=== PATIENT | female | born 1975 | race Caucasian/White ===

== ENCOUNTER 2020-01-11 15:20 | Outpatient (CLI) | payer OTHER, BC, SELFPAY ==
--- NOTE | ~2020-01-11 | MM_ITS ---
EXAMINATION: MM screening [facility] w ellis HISTORY: Screening mammogram TECHNIQUE: Craniocaudal and mediolateral oblique 3-D tomosynthesis images were obtained and synthetic 2-D images were generated. CAD analysis was submitted and interpreted. COMPARISON: 12/04/2018, 11/11/2017, 11/08/2016 bilateral digital screening mammogram examinations BREAST PARENCHYMAL COMPOSITION: There are scattered areas of fibroglandular density. FINDINGS: There is no evidence of suspicious mass, calcification, or architectural distortion to sugg est malignancy in either breast. There has been no suspicious interval change. IMPRESSION: 1. No mammographic evidence of malignancy. 2. Recommend routine screening mammography in one year. BI-RADS Category 1: Negative Reviewed, dictated and finalized at location A.
== END 2020-01-11 15:21 | disposition home or self-care (01) ==
LOC: ANHIMG 15:24
PROVIDERS: PCP Family Medicine Sports Medicine; Visit Provider Obstetrics & Gynecology
DX: Z12.31 Encounter for screening mammogram for malignant neoplasm of breast (principal)
CPT/HCPCS: 77063; 77067

== ENCOUNTER 2020-12-02 07:11 | Outpatient (CLI) | payer OTHER, BC, SELFPAY ==
--- NOTE | ~2020-12-02 | MM_ITS ---
EXAMINATION: MM screening [facility] BI w ellis HISTORY: Screening mammogram TECHNIQUE: Craniocaudal and mediolateral oblique 3-D tomosynthesis images were obtained and synthetic 2-D images were generated. CAD analysis was submitted and interpreted. COMPARISON: 01/11/2020, 12/04/2018, 11/11/2018 BREAST PARENCHYMAL COMPOSITION: There are scattered areas of fibroglandular density. FINDINGS: There is no evidence of suspicious mass, calcification, or architectural distortion to sugg est malignancy in either breast. There has been no suspicious interval change. IMPRESSION: 1. No mammographic evidence of malignancy. 2. Recommend routine screening mammography in one year. BI-RADS Category 1: Negative Reviewed, dictated and finalized at location A.
== END 2020-12-02 07:12 | disposition home or self-care (01) ==
LOC: ANHIMG 07:13
PROVIDERS: PCP Family Medicine Sports Medicine; Visit Provider Obstetrics & Gynecology
DX: Z12.31 Encounter for screening mammogram for malignant neoplasm of breast (principal)
CPT/HCPCS: 77063; 77067

== ENCOUNTER 2022-01-23 16:06 | Outpatient (CLI) | payer OTHER, BC, SELFPAY ==
--- NOTE | ~2022-01-23 | MM_ITS ---
EXAMINATION: MM screening [facility] BI w ellsi HISTORY: Screening mammogram TECHNIQUE: Craniocaudal and mediolateral oblique 3-D tomosynthesis images were obtained and synthetic 2-D images were generated. CAD analysis was submitted and interpreted. COMPARISON: 12/02/2020, 01/11/2020 BREAST PARENCHYMAL COMPOSITION: There are scattered areas of fibroglandular density. FINDINGS: RIGHT BREAST: There is no suspicious mass, calcification, or architectural distortion to suggest mann gnancy. There has been no significant interval change. LEFT BREAST: There is a possible mass in the middle/posterior third of the slightly inner breast appr oximately 9 cm from the nipple. IMPRESSION: 1. Possible left breast mass. 2. Additional mammographic views and possible breast ultrasound are recommended. BI-RADS Category 0: Incomplete: Needs additional imaging evaluation. Reviewed, dictated and finalized at location A. IMPRESSION: 1. Possible left breast mass. 2. Additional mammographic views and possible breast ultrasound are recommended . BI-RADS Category 0: Incomplete: Needs additional imaging evaluation.
== END 2022-01-23 16:07 | disposition home or self-care (01) ==
PROVIDERS: PCP Family Medicine Sports Medicine; Visit Provider Obstetrics & Gynecology
DX: Z12.31 Encounter for screening mammogram for malignant neoplasm of breast (principal); R92.8 Other abnormal and inconclusive findings on diagnostic imaging of breast
CPT/HCPCS: 77063; 77067

== ENCOUNTER 2022-02-12 12:27 | Outpatient (CLI) | payer OTHER, BC, SELFPAY ==
--- NOTE | ~2022-02-12 | MMUS_ITS ---
EXAMINATION: MM diagnostic [facility] LT w ellis, US breast LT limited HISTORY: Possible left breast mass on screening mammogram TECHNIQUE: Additional 3-D tomosynthesis images of the left breast were performed and synthetic 2-D im ages were generated. CAD analysis was submitted and interpreted. High resolution limited left breast ultrasound was performed. COMPARISON: 01/23/2022, 12/02/2020, 01/11/2020 FINDINGS: MAMMOGRAPHIC FINDINGS: An asymmetry persists in the posterior third of the slightly inner breast 10 cm from nipple at the 8: 00 location on the craniocaudal view. No definite correlate is identified on the additional views obt ained. ULTRASOUND: There is no evidence of focal abnormal solid or cystic mass in the vicinity of the mammographic findi ng in question. IMPRESSION: 1. Probably benign left breast asymmetry. 2. Recommend 6 month follow-up left diagnostic mammogram and possible ultrasound. BI-RADS category 3, probably benign findings. Reviewed, dictated and finalized at location A. IMPRESSION: 1. Probably benign left breast asymmetry. 2. Recommend 6 month follow-up left diagnostic mammogram and possible ultrasoun d. BI-RADS category 3, probably benign findings.
== END 2022-02-12 12:28 | disposition home or self-care (01) ==
PROVIDERS: PCP Family Medicine Sports Medicine; Visit Provider Obstetrics & Gynecology
DX: R92.8 Other abnormal and inconclusive findings on diagnostic imaging of breast (principal)
CPT/HCPCS: 76642; 77061; 77065; G0279

== ENCOUNTER 2022-08-27 11:36 | Outpatient (CLI) | payer OTHER, BC, SELFPAY ==
--- NOTE | ~2022-08-27 | MM_ITS ---
EXAMINATION: MM diagnostic [facility] LT w ellis HISTORY: Six-month follow-up of probable benign mammographic fibroglandular asymmetry TECHNIQUE: ML, MLO and CC 3-D tomosynthesis images of the left breast were performed and synthetic 2- D images were generated. CAD analysis was submitted and interpreted. COMPARISON: 02/12/2022iagnostic left mammogram and limited left breast ultrasound 08/23/2021 bilateral screening mammogram BREAST PARENCHYMAL COMPOSITION: There are scattered areas of fibroglandular density. FINDINGS: No suspicious mass or architectural distortion, malignant calcification, skin thickening or retraction or significant new or developing density is detected. IMPRESSION: 1. No mammographic evidence of malignancy 2. Routine annual mammographic screening is recommended BI-RADS Category 1: Negative Reviewed, dictated and finalized at location A.
== END 2022-08-27 11:37 | disposition home or self-care (01) ==
LOC: ANHIMG 11:38
PROVIDERS: PCP Family Medicine Sports Medicine; Visit Provider Obstetrics & Gynecology
DX: R92.8 Other abnormal and inconclusive findings on diagnostic imaging of breast (principal)
CPT/HCPCS: 77061; 77065; G0279

== ENCOUNTER 2023-08-06 15:42 | Outpatient (CLI) | payer OTHER, BC, SELFPAY ==
--- NOTE | ~2023-08-06 | MM_ITS ---
EXAMINATION: MM screening [facility] BI w ellis HISTORY: Screening mammogram TECHNIQUE: Craniocaudal and mediolateral oblique 3-D tomosynthesis images were obtained and synthetic 2-D images were generated. CAD analysis was submitted and interpreted. COMPARISON: August 27, 2022 diagnostic left mammogram February 12, 2022 diagnostic left mammogram and limited left breast ultrasound January 23, 2022, December 02, 2020 bilateral screening mammogram examinations BREAST PARENCHYMAL COMPOSITION: There are scattered areas of fibroglandular density. FINDINGS: There is no evidence of suspicious mass, calcification, or architectural distortion to sugg est malignancy in either breast. There has been no suspicious interval change. IMPRESSION: 1. No mammographic evidence of malignancy. 2. Recommend routine screening mammography in one year. BI-RADS Category 1: Negative Reviewed, dictated and finalized at location A.
== END 2023-08-06 15:43 | disposition home or self-care (01) ==
PROVIDERS: PCP Family Medicine Sports Medicine; Visit Provider Obstetrics & Gynecology
DX: Z12.31 Encounter for screening mammogram for malignant neoplasm of breast (principal)
CPT/HCPCS: 77063; 77067

== ENCOUNTER 2024-10-27 09:14 | Outpatient (CLI) | payer OTHER, BC, SELFPAY ==
--- OUTSIDE RECORDS SUMMARY | 2024-10-27 09:34 | XMS_ITS | Clinical Summary ---
Author Organization [facility] Address [address] [place] [address] Phone Care Team Providers Care Rubber Mill Tender Name Role Phone Oscar Parkinson MD Primary Care Provider [phone] Allergies Active Allergy Reactions Criticality Noted Date Comments Erythromycin Hives High 04/02/2022 Medications buPROPion HCL XL 150 mg 24 hr tablet, extended release Take 150 mg by mouth daily in the morning. Active HYDROcodone-winnie taminophen (HYCET) 7.5-325 mg/15 mL SolutionIndicat ions:Obesity (BMI 30.0-34.9) Take 15 mL by mouth every 6 hours as needed for Pain. Max Daily Amount: 60 mL 280 mL 05/04/2022 Active zolpidem (AMBIEN) 10 mg tablet Take 10 mg by mouth nightly as needed for Insomnia. Active estradioL (ESTRACE) 1 mg tablet Take 1 mg by mouth daily. Active pantoprazole (PROTONIX) 40 mg Tablet, Delayed Release (E.C.) Take 40 mg by mouth daily. 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 Gender Identity Not on file Sexual Orientation Not on file Last Filed Vital Signs Vital Sign Reading Time Taken Comments Blood Pressure 122/72 07/27/2022 9:10 AM ADVERTISING PHOTOGRAPHER Pulse 60 07/27/2022 9:10 AM ADVERTISING PHOTOGRAPHER Temperature 37 C (98.6 F) 07/27/2022 8:49 AM ADVERTISING PHOTOGRAPHER Respiratory Rate 19 07/27/2022 9:10 AM ADVERTISING PHOTOGRAPHER Oxygen Saturation 99% 07/27/2022 9:10 AM ADVERTISING PHOTOGRAPHER Inhaled Oxygen Concentration - - Weight 83.7 kg (184 lb 9.6 oz) 07/27/2022 7:43 A M ADVERTISING PHOTOGRAPHER Height 175.3 cm (5' 9) 07/27/2022 7:43 AM ADVERTISING PHOTOGRAPHER Body Mass Index 27.26 07/27/2022 7:43 AM ADVERTISING PHOTOGRAPHER Plan of Treatment Health Maintenance Due Date Last Done Comments DTAP/TDAP/TD VACCINES (1 - Tdap) 1993 HEPATITIS B VACCINES (1 of 3 - 19+ 3-dose series) 02/24 HPV/Cotest (21-29) 1995 CERVICAL CANCER SCREENING 2004 HPV/Cotest (30-65) 2004 PAP SMEAR 2004 BREAST CANCER SCREENING 2014 COLORECTAL SCREENING 2019 Colorectal Cancer Screening 2019 FIT-DNA Q 3 years 2019 FIT/FOBT Q 1 year 2019 Flex Sig/CT Colonography Q 5 years 2019 INFLUENZA VACCINE (#1) 2023 ZOSTER VACCINE (1 of 2) 2024 Medical Devices Implanted Type Area Applications Development Analyst Device Identifier Shelf Expiration Date Model / Serial / Lot Intragastric Balln Orber[employer] Sys B-4800 - [id number] Implanted:Qty: 1 on 05/04/2022 by Nate Ramírez MD at [facility] Other N/A: Esophagus [employer] B-4800 / / [place] [address] [place] [address] BLUE ACCESS CHOICE Care Teams Rubber Mill Tender Relationship Specialty Start Date End Date Oscar Parkinson MD [address] [place] [address] PCP - General Family Practice 07/27/22
[2024-10-27 09:56] LABS: Basophils Absolute Auto 0.1 K/mm3 (0.0-0.1); Basophils Percent Auto 1.3 % (0.2-1.2); Eosinophils Absolute Auto 0.4 K/mm3 (0-0.3); Eosinophils Percent Auto 8.1 % (0-4.4); Hematocrit 44.3 % (37.0-47.0); Hemoglobin 14.5 g/dL (12.0-15.0); Immature Granulocyte Absolute 0.01 K/mm3 (0.00-0.031); Immature Granulocyte Percent A 0.2 % (0-0.5); Lymphocytes Percent Auto 34.9 % (18.3-44.2); Mean Corpuscular HGB Conc 32.7 g/dl (32-36); Mean Corpuscular Hemoglobin 30.7 pg (26-34); Mean Corpuscular Volume 93.7 fl (80-100); Monocytes Absolute Auto 0.2 K/mm3 (0.1-0.6); Monocytes Percent Auto 5.2 % (2.6-8.5); Neutrophils Absolute Auto 2.3 K/mm3 (1.3-6.7); Neutrophils Percent Auto 50.3 % (45.5-73.1); Platelet Count Result 219 k/mm3 (150-375); Red Blood Count 4.73 M/mm3 (4.2-5.4); Red Cell Distribution Width 12.6 % (11.5-14.5); White Blood Count 4.6 K/mm3 (4.5-10.0)
[2024-10-27 10:04] LABS: Add Urine Microscopic? YES; Appearance Urine Clear (Clear); Bacteria Urine None Seen /hpf; Bilirubin Urine Negative (Negative); Blood Urine Negative (Negative); Color Urine Yellow (Yellow); Glucose Urine UA Negative (Negative); Ketones Urine Negative (Negative); Leukocyte Esterase Ur Trace LEU/UL (Negative); Nitrate Urine Negative (Negative); Non Pathogenic Casts 0-2; Protein Urine Negative (Negative); RBC Urine 0-2 /hpf (0-2); Specific Grav Ur 1.014 (1.001-1.035); Squamous Epithelial Cell Urine None Seen /hpf (Few); WBC Urine 0-5 /hpf (0-3)
[2024-10-27 10:36] LABS: Vitamin D 25 Hydroxy 25.3 ng/mL
[2024-10-27 14:09] LABS: Alanine Aminotransferase 15 U/L (6-35); Albumin Level 4.4 g/dL (3.5-5.1); Alkaline Phosphatase 61 U/L (38-126); Anion Gap 4 mmol/L (4-12); Aspartate Amino Transferase 24 U/L (14-36); Bilirubin,Total 0.6 mg/dL (0.2-1.3); Blood Urea Nitrogen 14 mg/dL (7-17); Calcium 9.5 mg/dL (8.4-10.2); Carbon Dioxide 32 mmol/L (22-30); Chloride 103 mmol/L (98-107); Cholesterol 218 mg/dL (0-200); Estimated Glomerular Filt Rate > 60; Glucose 89 mg/dL (65-110); HDL Direct 88 mg/dL; Potassium 4.2 mmol/L (3.4-5.0); Sodium 139 mmol/L (137-145); Total Protein 7.5 g/dL (6.3-8.2); Triglycerides 129 mg/dL (<150)
[2024-10-27 14:22] LABS: LDL Cholesterol Direct 89 mg/dL
== END 2024-10-27 09:15 | disposition home or self-care (01) ==
LOC: ANHLAB 09:19
PROVIDERS: PCP Family Medicine Sports Medicine; Visit Provider Nurse Practitioner
DX: Z00.00 Encounter for general adult medical examination without abnormal findings (principal); Z12.31 Encounter for screening mammogram for malignant neoplasm of breast
CPT/HCPCS: 36415; 80053; 80061; 81001; 82306; 82607; 84443; 85025

== ENCOUNTER 2024-12-11 09:27 | Outpatient (CLI) | payer OTHER, BC, SELFPAY ==
--- OUTSIDE RECORDS SUMMARY | 2024-12-11 09:31 | XMS_ITS | Clinical Summary ---
Author Organization [facility] Address [address] [place] [address] Phone Care Team Providers Care Fire Chief Deputy Name Role Phone Oscar Parkinson MD Primary Care Provider [phone] Allergies Active Allergy Reactions Criticality Noted Date [...] on file Legal Sex Female 9:31 AM ASSAULT AMPHIBIOUS VEHICLE CREWMAN Gender Identity Not on file Sexual Orientation Not on file Last Filed Vital Signs Vital Sign Reading Time Taken Comments Blood Pressure 122/72 07/27/2022 9:10 AM ASSAULT AMPHIBIOUS VEHICLE CREWMAN Pulse 60 07/27/2022 9:10 AM ASSAULT AMPHIBIOUS VEHICLE CREWMAN Temperature 37 C (98.6 F) 07/27/2022 8:49 AM ASSAULT AMPHIBIOUS VEHICLE CREWMAN Respiratory Rate 19 07/27/2022 9:10 AM ASSAULT AMPHIBIOUS VEHICLE CREWMAN Oxygen Saturation 99% 07/27/2022 9:10 AM ASSAULT AMPHIBIOUS VEHICLE CREWMAN Inhaled Oxygen Concentration - - Weight 83.7 kg (184 lb 9.6 oz) 07/27/2022 7:43 A M ASSAULT AMPHIBIOUS VEHICLE CREWMAN Height 175.3 cm (5' 9) 07/27/2022 7:43 AM ASSAULT AMPHIBIOUS VEHICLE CREWMAN Body Mass Index 27.26 07/27/2022 7:43 AM ASSAULT AMPHIBIOUS VEHICLE CREWMAN Plan of Treatment Health Maintenance Due Date [...] Flex Sig/CT Colonography Q 5 years 2019 ZOSTER VACCINE (1 of 2) 2024 INFLUENZA VACCINE (#1) 2024 Medical Devices Implanted Type Area Paperboard Box Maker Device Identifier Shelf Expiration Date Model / Serial / Lot Intragastric Balln [employer]ber[employer] Sys B-4800 - [id number] Implanted:Qty: 1 on 05/04/2022 by Nate Ramírez MD at [facility] Other N/A: Esophagus [employer] B-4800 / / [place] [address] [place] [address] BLUE ACCESS CHOICE Care Teams Fire Chief Deputy Relationship Specialty Start Date End Date Oscar Parkinson MD [address] [place] [address] PCP - General Family Practice 07/27/22
[2024-12-15 14:08] LABS: Free Testosterone (Direct) 0.4 pg/mL (0.0-4.2)
[2024-12-15 20:07] LABS: Estrogens, Total 831 pg/mL (.)
== END 2024-12-11 09:28 | disposition home or self-care (01) ==
PROVIDERS: PCP Family Medicine Sports Medicine; Visit Provider Nurse Practitioner
DX: E79.89 Other specified disorders of purine and pyrimidine metabolism (principal); Z00.00 Encounter for general adult medical examination without abnormal findings; Z12.11 Encounter for screening for malignant neoplasm of colon; R41.89 Other symptoms and signs involving cognitive functions and awareness; R68.82 Decreased libido
CPT/HCPCS: 82672; 84144; 84402

== ENCOUNTER 2024-12-14 13:48 | Outpatient (CLI) | payer OTHER, BC, SELFPAY ==
--- NOTE | ~2024-12-14 | MM_ITS ---
EXAMINATION: MM screening [facility] BI w ellis HISTORY: Screening TECHNIQUE: Craniocaudal and mediolateral oblique 3-D tomosynthesis images were obtained and synthetic 2-D images were generated. CAD analysis was submitted and interpreted. COMPARISON: Comparison to multiple prior studies sequentially, with oldest reviewed study dated 12/04. BREAST PARENCHYMAL COMPOSITION: There are scattered areas of fibroglandular density. FINDINGS: There is no evidence of suspicious mass, calcification, or architectural distortion to sug gest malignancy in either breast. IMPRESSION: 1. No mammographic evidence of malignancy. 2. Recommend routine screening mammography in one year. BI-RADS Category 1: Negative Reviewed, dictated and finalized at location B.
--- OUTSIDE RECORDS SUMMARY | 2024-12-14 13:55 | XMS_ITS | Clinical Summary ---
Author Organization [facility] Address [address] [place] [address] Phone Care Team Providers Care Manager Employee Relations Name Role Phone Oscar Parkinson MD Primary Care Provider [phone] Allergies Active Allergy Reactions Criticality Noted Date [...] on file Legal Sex Female 9:31 AM SHARPLES MACHINE OPERATOR Gender Identity Not on file Sexual Orientation Not on file Last Filed Vital Signs Vital Sign Reading Time Taken Comments Blood Pressure 122/72 07/27/2022 9:10 AM SHARPLES MACHINE OPERATOR Pulse 60 07/27/2022 9:10 AM SHARPLES MACHINE OPERATOR Temperature 37 C (98.6 F) 07/27/2022 8:49 AM SHARPLES MACHINE OPERATOR Respiratory Rate 19 07/27/2022 9:10 AM SHARPLES MACHINE OPERATOR Oxygen Saturation 99% 07/27/2022 9:10 AM SHARPLES MACHINE OPERATOR Inhaled Oxygen Concentration - - Weight 83.7 kg (184 lb 9.6 oz) 07/27/2022 7:43 A M SHARPLES MACHINE OPERATOR Height 175.3 cm (5' 9) 07/27/2022 7:43 AM SHARPLES MACHINE OPERATOR Body Mass Index 27.26 07/27/2022 7:43 AM SHARPLES MACHINE OPERATOR Plan of Treatment Health Maintenance Due Date [...] (#1) 2024 Medical Devices Implanted Type Area Advertisement Distributor Device Identifier Shelf Expiration Date Model / Serial / Lot Intragastric Balln [employer]ber[employer] Sys B-4800 - [id number] Implanted:Qty: 1 on 05/04/2022 by Nate Ramírez MD at [facility] Other N/A: Esophagus [employer] B-4800 / / [place] [address] [place] [address] BLUE ACCESS CHOICE Care Teams Manager Employee Relations Relationship Specialty Start Date End Date Oscar Parkinson MD [address] [place] [address] PCP - General Family Practice 07/27/22
== END 2024-12-14 13:49 | disposition home or self-care (01) ==
LOC: ANHIMG 13:49
PROVIDERS: PCP Family Medicine Sports Medicine; Visit Provider Obstetrics & Gynecology
DX: Z12.31 Encounter for screening mammogram for malignant neoplasm of breast (principal)
CPT/HCPCS: 77063; 77067